=== PATIENT | male | born 1970 | race Caucasian/White ===

== ENCOUNTER 2022-11-08 06:36 | Day surgery (SDC) | payer BC ==
[~2022-11-08 06:36] MED LIST: Lactated Ringers 1,000 ML IV SCH; Lidocaine 1%/Sod Bicarbonate in NS 8.4% 1 ML Syringe IDERM PRN; Sodium Chloride 0.9% 10 ML Syringe FLUSH PRN; Sodium Chloride 0.9% 10 ML Syringe FLUSH SCH
[2022-11-08] MEDS ORDERED: fentaNYL 100 MCG/2 ML SDV ONE (07:23)
[2022-11-08] MEDS ORDERED: Propofol 200 MG/20 ML SDV ONE (07:23)
[2022-11-08] MEDS ORDERED: Lidocaine 1% 6 ML ONE (07:23)
== END 2022-11-08 09:00 | disposition home or self-care (01) ==
LOC: JD.SDS 06:36
PROVIDERS: ATTEND Family Medicine
DX: Z12.11 Encounter for screening for malignant neoplasm of colon (principal); J45.909 Unspecified asthma, uncomplicated; F17.210 Nicotine dependence, cigarettes, uncomplicated; E11.9 Type 2 diabetes mellitus without complications; E66.9 Obesity, unspecified; E78.5 Hyperlipidemia, unspecified; Z68.43 Body mass index [BMI] 50.0-59.9, adult; Z79.899 Other long term (current) drug therapy; Z79.84 Long term (current) use of oral hypoglycemic drugs; Z88.0 Allergy status to penicillin; Z98.890 Other specified postprocedural states
CPT/HCPCS: 45378; 82947; J2704; J3010; J7120